=== PATIENT | female | born 1975 | race Caucasian/White ===

== ENCOUNTER 2016-11-27 15:10 | Emergency (ER) | payer SELFPAY ==
[2016-11-27] MEDS ORDERED: CLIN300C8 PO (15:42)
[2016-11-27] MEDS ORDERED: NAPR500T PO (15:42)
[2016-11-27] MEDS ORDERED: HYDR-971 PO (15:42)
--- NOTE | 2016-11-27 15:45 | PHYS DOC ---
General Chief Complaint: DENTAL PROBLEM Stated Complaint: FACIAL SWELLING Time Seen by MD: 15:17 Source: patient Exam Limitations: no limitations Problems: History of Present Illness Initial Comments Patient is a 41-year-old female who comes to the ED complaining of dental pain and facial swelling. Patient states she has long history of bad teeth, she's had many extracted in the past due to decay. Currently patient complains of upper right incisor pain which has been going on for days, this morning she awoke with facial swelling. The pain radiates up to her nose she denies fever chills malaise and myalgias nausea vomiting. Rrhj-ihr-lzafrmz ibuprofen is not helping states she is able to eat and drink. She is requesting antibiotics and pain medications she states she [facility] ED vital signs 98.2, 128, 99/67 Timing/Duration: last week Severity: severe Location: dental Prearrival Treatment: over the counter meds Allergies: Coded Allergies: No Known Drug Allergies (Unverified , 11/27/16) Past Medical History Medical History: no pertinent history Surgical History: noncontributory Social History Smoker: cigarettes Alcohol: rarely Drugs: none Constitutional: denies chills, denies diaphoresis, denies fever, denies malaise Eyes: denies blindness, denies blurred vision, denies drainage Ears: denies dizziness, denies pain, denies tinnitus Nose: see HPI, denies congestion, denies epistaxis Mouth: see HPI Throat: denies pain, denies swelling, denies neck stiffness Respiratory: denies cough, denies shortness of breath Cardiovascular: denies chest pain, denies palpitations Gastrointestinal: denies diarrhea, denies nausea, denies vomiting Musculoskeletal: denies back pain, denies joint swelling, denies neck pain Neurological: denies headache, denies numbness, denies paresthesia Physical Exam General Appearance: mild distress Eyes: bilateral eye normal inspection, bilateral eye PERRL, bilateral eye EOMI Nose: normal inspection Mouth/Throat: other (the majority of her molars have been extracted, severe decay along the remaining upper incisors with gingival swelling and tenderness no purulence noted. Mild upper maxillary tenderness elicited without palpable deformity there is no throat swelling and her airway is patent.) Neck: supple, trachea midline Cardiovascular/Respiratory: normal peripheral pulses, no respiratory distress ( faint diffuse wheeze bilaterally with good air movement), tachycardia Neurologic/Psychiatric: manganese heater II-XII nml as tested, no motor/sensory deficits, alert, normal mood/affect, oriented x 3 Skin: normal color, warm/dry Orders, Labs, Meds I discussed patient's vital signs with her at length and need for septic workup as well as CT evaluation to rule out osteomyelitis. Patient notified she will likely need intravenous antibiotics. Patient refuses, states she has white coat hypertension and always has elevated heart rate at Dr. visits as she is very nervous. States she smokes several cigarettes and drank a lot of coffee adding to those symptoms. I advised her that should she develop osteomyelitis or bacteremia she could have prolonged illness and inpatient treatment and/or potentially life threatening illness. She requests discharge with antibiotics states she will return to the ED if she develops fever or other symptoms she feels are related to systemic illness. She was advised to follow-up with her doctor tomorrow for recheck and to call the dental office to try to move her appointment up to next available. She was advised to stop smoking. Departure Time of Disposition: 15:42 Disposition: HOME, SELF-CARE Diagnosis: dental caries with facial cellulitis, Condition: STABLE Patient Instructions: Dental Abscess Additional Instructions: As discussed you have refused blood and CT evaluation to determine the severity of your infection. Return to the ED should you change your mind. Aggressive hydration with Gatorade and water. Listerine mouth gargles 3 times daily after brushing and flossing. Prescription: penicillin, Naprosyn, [place] 5 mg #20 Take [id number] stool softeners while taking [place] to prevent constipation , take medications with food to avoid nausea. Contact your dentist to get your appointment moved up from January, call today. Return to the ED with new or changing symptoms. PHUC IRAHETA DO Nov 27, 2016 15:45
[2016-11-27] MEDS ORDERED: PENI500T PO (15:55)
[2016-11-27 16:15] VITALS: BP 129/87
[2016-11-27] MEDS ORDERED: CLINDAMYCIN HCL 150 MG CAPSULE PO ONE (16:15)
== END 2016-11-27 16:15 | disposition home or self-care (01) ==
LOC: ER 15:10
DX: K02.9 Dental caries, unspecified (principal); L03.211 Cellulitis of face; F17.210 Nicotine dependence, cigarettes, uncomplicated
CPT/HCPCS: 99283